=== PATIENT | female | born 1945 | race Caucasian/White ===

== ENCOUNTER 2019-01-21 16:00 | Observation (INO) | payer OTHER ==
[~2019-01-21] VITALS: Ht 162.6 cm; Wt 73.9 kg
[~2019-01-21 16:00] MED LIST: ASPIR 8181 MG PO; HYDROCHLOROTH12.5 M1 PO; LOSARTAN POTAS100 MG PO; NORVASC5 MG PO; PROAIR HFA INH8.5 GM INH; SERTRALINE HCL100 MG PO; TERAZOSIN HCL2 MG PO; TIROSINT75 MCG PO
[2019-01-21] MEDS ORDERED: ASPIRIN 81 MG CHEW TAB PO STA (16:46)
[2019-01-21] MEDS ORDERED: ASPIRIN 81 MG CHEW TAB PO ONE (17:00)
[2019-01-21 17:31] LABS: BASOPHILS # (AUTO) 0.1 (0.0-0.1); BASOPHILS % 1.1 % (0.0-1.0); EOSINOPHILS # (AUTO) 0.2 (0.0-0.4); EOSINOPHILS % 2.4 % (0.0-6.0); HEMATOCRIT 37.3 % (34.2-44.1); HEMOGLOBIN 12.5 g/dL (12.0-16.0); LYMPHOCYTES % 31.6 % (18.0-39.1); MEAN CORPUSCULAR HEMOGLOBIN 30.6 pg (28-32); MEAN CORPUSCULAR HGB CONC 33.5 g/dL (31-35); MEAN CORPUSCULAR VOLUME 91.2 fL (81-99); MONOCYTES # (AUTO) 0.5 (0.2-0.8); MONOCYTES % 7.2 % (4.4-11.3); NEUTROPHILS # (AUTO) 3.6 (2.1-6.9); NEUTROPHILS % 57.5 % (38.7-80.0); PLATELET COUNT 173 x10e3/uL (140-360); RED BLOOD COUNT 4.09 x10e6/uL (3.6-5.1); RED CELL DISTRIBUTION WIDTH 13.5 % (11.7-14.4)
[2019-01-21 17:37] LABS: INR 0.86; PROTHROMBIN TIME 12.2 seconds (11.9-14.5)
[2019-01-21 17:38] LABS: PARTIAL THROMBOPLASTIN TIME 30.3 seconds (23.8-35.5)
[2019-01-21 17:41] LABS: BILIRUBIN,URINE NEGATIVE (NEGATIVE); CLARITY,URINE CLEAR (CLEAR); COLOR,URINE YELLOW (YELLOW); KETONES,URINE NEGATIVE (NEGATIVE); LEUKOCYTE ESTERASE ,URINE TRACE (NEGATIVE); NITRITE,URINE NEGATIVE (NEGATIVE); PROTEIN,URINE DIPSTICK NEGATIVE (NEGATIVE); URINE UROBILINOGEN 0.2 mg/dL (0.2 - 1)
[2019-01-21 17:45] LABS: ALANINE AMINOTRANSFERASE 9 IU/L (0-55); ALBUMIN 3.6 g/dL (3.5-5.0); ALBUMIN/GLOBULIN RATIO 1.1 (0.8-2.0); ALKALINE PHOSPHATASE 40 IU/L (40-150); ANION GAP 9.6 mmol/L (8-16); BLOOD UREA NITROGEN 18 mg/dL (7-26); BUN/CREATININE RATIO 23 (6-25); CALCIUM 9.2 mg/dL (8.4-10.2); CARBON DIOXIDE 26 mmol/L (22-29); CHLORIDE 102 mmol/L (98-107); CREATINE KINASE 52 IU/L (29-168); CREATININE, SERUM 0.78 mg/dL (0.57-1.11); EST GLOMERULAR FILTRATION RATE > 60 ML/MIN (60-); GLUCOSE 102 mg/dL (74-118); POTASSIUM 3.6 mmol/L (3.5-5.1); SODIUM 134 mmol/L (136-145)
[2019-01-21 17:48] LABS: BACTERIA,URINE FEW /HPF; EPITHELIAL CELLS,URINE MODERATE /LPF; WBC,URINE (MAN) 0-5 /HPF (0-5)
--- NOTE | 2019-01-21 18:13 | Diagnostic Imaging Report ---
EXAMINATION: CHEST SINGLE (PORTABLE) INDICATION: CHEST PAIN COMPARISON: None FINDINGS: TUBES and LINES: None. LUNGS: Lungs are well inflated. Lungs are clear. There is no evidence of pneumonia or pulmonary edema. PLEURA: No pleural effusion or pneumothorax. HEART AND MEDIASTINUM: The cardiac silhouette is mildly enlarged. BONES AND SOFT TISSUES: No acute osseous lesion. Multiple surgical clips projected on the thoracic inlet. UPPER ABDOMEN: No free air under the diaphragm. IMPRESSION: Mild cardiomegaly without acute decompensation. Signed by: Dr. Topher Walter M.D. on 01/21/2019 6:09 PM
[2019-01-21] MEDS ORDERED: ACETAMINOPHEN 325 MG TAB PO ONE (18:30)
--- OUTSIDE RECORDS SUMMARY | 2019-01-21 19:10 | XMS REPORT ---
Author Author [facility] Address Unknown Phone Unavailable Care Team Providers Care Cuff Stitcher Name Role Phone Louise PERRIN Unavailable Unavailable Problems This patient has no known problems. Allergies, Adverse Reactions, Alerts This patient has no known allergies or adverse reactions. Medications This patient has no known medications. Results Test Description Test Time Test Comments Text Results Atomic Results Result Comments CHEST SINGLE (PORTABLE) 2019-01-21 18:08:00 [place] [id number] Patient Name: SABA SHI MR #: [id number] : 1945 Age/Sex: 73/F Req #: [id number] Adm Physician: Ordered by: SOCORRO PERRNI MD Report #: [id number] Location: ER Room/Bed: Procedure: [id number] DX/CHEST SINGLE (PORTABLE) Exam Date: 01/21/19 Exam Time: 1745 REPORT STATUS: Signed EXAMINATION: CHEST SINGLE (PORTABLE) INDICATI ON: CHEST PAIN COMPARISON: None FINDINGS: TUBES and LINES: None. LUNGS: Lungs are well inflated. Lungs are clear. There is no evidence of pneumonia or pulmonary edema. PLEURA: No pleural effusion or pneumothorax. HEART AND MEDIASTINUM: The cardiac silhouette is mildly enlarged. BONES AND SOFT TISSUES: No acute osseous lesion. Multiple surgical clips projected on the thoracic inlet. UPPER ABDOMEN: No free air under the diaphragm. IMPRESSION: Mild cardiomegaly without acute decompensation. Signed by: Dr. Topher Walter M.D. on 01/21/2019 6:09 PM Dictated By: NESTOR WALTER MD, MD 08 Transcribed By: PONCHO on 01/21/191808 COPY TO: SOCORRO PERRIN MD
[2019-01-21] MEDS ORDERED: ONDANSETRON HCL INJ 2MG/ML 2ML 2 MG/ML VIAL IV PRN (19:15)
[2019-01-21] MEDS: FAMOTIDINE 20 MG/2 ML VIAL IV SCH (19:45)
[2019-01-21 20:00] VITALS: BP 171/73
[2019-01-21 21:33] VITALS: BP 171/73
[2019-01-21 21:34] VITALS: BP 171/73
[2019-01-21] MEDS ORDERED: ALBUTEROL SULFATE HFA 8GM INHALATION AEROSOL INH PRN (21:45)
[2019-01-21] MEDS ORDERED: HYDRALAZINE HCL 20 MG/ML VIAL IV PRN (23:15)
[2019-01-21] MEDS ORDERED: DIOVAN160 MG PO (23:43)
[2019-01-21] MEDS ORDERED: HYDRALAZINE HCL25 MG PO (23:43)
[2019-01-21] MEDS ORDERED: TIZANIDINE HCL4 MG PO (23:43)
[2019-01-21] MEDS ORDERED: TRAZODONE HCL50 MG PO (23:43)
[2019-01-21] MEDS ORDERED: SYMBICORT 16010.2 GM (23:43)
[2019-01-22] VITALS (7 sets, daily range): BP systolic 140–174; BP diastolic 63–78
[2019-01-22] MEDS: LEVOTHYROXINE SODIUM 75 MCG TAB PO SCH (05:11)
[2019-01-22 05:41] LABS: BASOPHILS # (AUTO) 0.1 (0.0-0.1); EOSINOPHILS # (AUTO) 0.2 (0.0-0.4); EOSINOPHILS % 3.1 % (0.0-6.0); HEMATOCRIT 33.2 % (34.2-44.1); HEMOGLOBIN 11.3 g/dL (12.0-16.0); LYMPHOCYTES # (AUTO) 2.2 (1.0-3.2); LYMPHOCYTES % 35.9 % (18.0-39.1); MEAN CORPUSCULAR HEMOGLOBIN 30.5 pg (28-32); MEAN CORPUSCULAR VOLUME 89.5 fL (81-99); MONOCYTES # (AUTO) 0.5 (0.2-0.8); MONOCYTES % 7.6 % (4.4-11.3); NEUTROPHILS # (AUTO) 3.2 (2.1-6.9); NEUTROPHILS % 52.1 % (38.7-80.0); PLATELET COUNT 154 x10e3/uL (140-360); RED BLOOD COUNT 3.71 x10e6/uL (3.6-5.1); RED CELL DISTRIBUTION WIDTH 13.2 % (11.7-14.4)
[2019-01-22 05:51] LABS: ANION GAP 8.1 mmol/L (8-16); BLOOD UREA NITROGEN 20 mg/dL (7-26); BUN/CREATININE RATIO 25 (6-25); CALCIUM 8.8 mg/dL (8.4-10.2); CARBON DIOXIDE 25 mmol/L (22-29); CHLORIDE 105 mmol/L (98-107); CHOL/HDL RATIO 3.8 (3.0-3.6); CHOLESTEROL 203 MD/DL (0-199); EST GLOMERULAR FILTRATION RATE > 60 ML/MIN (60-); GLUCOSE 96 mg/dL (74-118); HDL CHOLESTEROL 53 MG/DL (40-60); LDL CHOLESTEROL 128 MG/DL (60-130); POTASSIUM 4.1 mmol/L (3.5-5.1); SODIUM 134 mmol/L (136-145); TRIGLYCERIDES 109 MG/DL (0-149)
[2019-01-22 06:07] LABS: CREATINE KINASE MB 1.1 ng/mL (0-5.0)
--- NOTE | 2019-01-22 07:10 | NUR ---
Walking rounds done. Report received.Patient up to bathroom without any complaints voiced at this time. Patient instructed to call for assistance as needed and verbalized understanding.
[2019-01-22] MEDS: HYDROCHLOROTHIAZIDE 25 MG TAB PO SCH ×2 (09:00→16:08)
[2019-01-22] MEDS ORDERED: LOSARTAN POTASSIUM 100 MG TAB PO SCH (09:00)
[2019-01-22] MEDS ORDERED: NON-FORMULARY MEDICATION (Hydrochlorothiazide 12.5 MG) PO SCH (09:00)
[2019-01-22] MEDS ORDERED: HYDROCHLOROTHIAZIDE 10 MG PO SCH (09:00)
[2019-01-22] MEDS ORDERED: TERAZOSIN HCL 1 MG CAP PO SCH (09:00)
[2019-01-22] MEDS ORDERED: AMLODIPINE BESYLATE 5 MG TAB PO SCH (09:00)
[2019-01-22] MEDS ORDERED: NON-FORMULARY MEDICATION (Terazosin Hcl 2 MG) PO SCH (09:00)
[2019-01-22] MEDS ORDERED: NON-FORMULARY MEDICATION (Levothyroxine Sodium (Tirosint) 75 MCG) PO SCH (09:00)
[2019-01-22] MEDS ORDERED: ASPIRIN 81 MG ENTERIC COATED PO SCH (09:00)
[2019-01-22] MEDS: FAMOTIDINE 20 MG/2 ML VIAL IV SCH ×2 (09:00→21:08)
[2019-01-22] MEDS: ASPIRIN 81 MG CHEW TAB PO SCH (09:21)
[2019-01-22] MEDS: SERTRALINE HCL 100 MG TAB PO SCH (09:21)
[2019-01-22] MEDS ORDERED: ACETAMINOPHEN 325 MG TAB PO PRN (09:30)
--- NOTE | 2019-01-22 09:38 | NUR ---
SOCIAL WORK INITIAL ASSESSMENT English Language Learner Tutor to bedside to discuss plan of care with patient/family. CM/SW role and care transitions discussed. Anticipated discharge plan discussed along with duration of care. CM/SW discussed patients right to make decisions in care. CM/SW work hours given. Patient lives: WITH Admit/Transfer: VIA ED POA/Emergency contact: GARY [phone] OR YANN [phone] Current/Previous Home Health: NA PCP/Follow-up Care: EVAN Current/Previous DME: NONE Other Services: NONE Employment Status: NA Areas of Concerns: NA Referral Needs: NA Education Needs: NA IMM/KNOWLES given and signed (if applicable): UPON ADMISSION Goal for discharge: RETURN HOME CM/SW left business card at the bedside with contact information. Name and number was also written on the patients whiteboard. Patient verbalized understanding of discussion. CM will follow-up with ongoing discharge and transition of care needs.
[2019-01-22] MEDS: VALSARTAN 160 MG TAB PO SCH (10:02)
--- NOTE | 2019-01-22 12:55 | NUR ---
Patient returned from stress test
[2019-01-22] MEDS: NIFEDIPINE CR 30 MG TAB PO SCH (13:00)
[2019-01-22] MEDS ORDERED: CLOPIDOGREL BISULFATE 75 MG TAB PO NR (13:15)
[2019-01-22] MEDS: HYDRALAZINE HCL 25 MG TAB PO SCH ×2 (15:55→21:10)
--- NOTE | 2019-01-22 16:31 | Operative Report ---
DATE OF PROCEDURE: SURGEON: Sarmad Maravilla MD TITLE OF TEST: Cardiac stress test. TECHNICAL DETAILS: The protocol is Nacho with target heart rate at 124 per minute. RESULTS: 1. The patient exercised for a total of 6 minutes and 6 seconds. 2. Heart rate increased from 54 per minute to 130 per minute. 3. Blood pressure increased from to 130/84. Significant ST-T segment changes were noted. 4. No chest pain, but shortness of breath. 5. Of note, the patient came with chest tightness and pain radiating to her neck, which she did not have during that stress test. IMPRESSION: Strongly positive stress test by EKG criteria. However, the patient did not have reproducible chest pain, it is only shortness of breath. We discussed the finding and recommendation options of further tests are discussed. Nuclear stress test will be probably the best approach; however, the patient would like to think about her option and decide what to do. MD RAY Pond/MODL /[id number]
--- NOTE | 2019-01-22 19:16 | Consultation ---
DATE OF CONSULTATION: Cardiac Consultation REASON FOR CONSULTATION: Chest pain. HISTORY OF PRESENT ILLNESS: This is a 73-year-old lady who has long standing history of hypertension, reactive airway disease, and asthma. She is in her usual status of health. For one month or so, she is having more "respiratory tract symptoms and difficulty breathing." Yesterday, she was stressed out. She started having chest pressure and tightness, radiating to her neck, very typical for angina. She came to the emergency room, two sets of cardiac enzymes are normal. The patient does have shortness of breath on exertion and repeated shortness of breath, wheezes, cough, and congestion. She is followed in [facility]. She saw a health screener who did only EKG on her. REVIEW OF SYSTEMS: GENERAL: No fever. No chills. HEENT: Remarkable for repeated congestion. PULMONARY: Asthma like symptoms. CARDIAC: As per above. In addition, shortness of breath on exertion. GI: No hematemesis. No melena. No GERD symptoms. MUSCULOSKELETAL: No aches. No pains. NEUROLOGIC: No weakness. SOCIAL HISTORY: She is . She is nonsmoker and non-alcohol drinker. HOME MEDICATIONS: Include aspirin, hydralazine 50 mg t.i.d., hydrochlorothiazide 12.5 mg daily, levothyroxine 75 mcg a day, and valsartan 320 mg. ALLERGIES: CODEINE, IODINE, STATIN, SULFA, AND BETA-CHANDRIKA. PAST MEDICAL HISTORY: 1. Appendectomy. 2. Partial hysterectomy. 3. Cataract surgery. 4. Tonsillectomy. 5. Left knee surgery. 6. Asthma. 7. Reactive airway disease. 8. Hypertension. 9. Kidney stone. 10. Diverticulosis. FAMILY HISTORY: Mother of congestive heart failure, but she was already age 90. Father, unknown medical health problems. One sister, who is doing well. No history of premature coronary artery disease. PHYSICAL EXAMINATION: VITAL SIGNS: Height of 5 feet 4 inches, weight of 163 pounds. Blood pressure 144/70, heart rate of 50, and respiratory rate of 18, and temperature 98 Farenheit. HEENT: Pupils are reactive. NECK: No elevation of jugular venous pulsation. No bruit. CHEST: Clear to auscultation and percussion. HEART: PMI, fifth left intercostal space. Normal first and second heart sounds. ABDOMEN: Soft, with good bowel sounds. EXTREMITIES: No cyanosis, no clubbing, no edema. No signs of deep venous thrombosis. NEUROLOGIC: Awake, alert, and oriented. No motor or sensory deficits. LABORATORY DATA: BNP of 103. Cardiac enzymes are normal. Triglycerides are 109, cholesterol 203, HDL 53, LDL 128. Sodium of 134, potassium of 4.1, BUN of 20, creatinine 0.8. White blood cell count of 6.2, hemoglobin 11.3, hematocrit 33%, and platelet count of 154,000. Chest x-ray by reports showed no major abnormality. IMPRESSION AND PLAN: 1. Chest pain, seem to be typical by description. 2. Hypertension. 3. Hypercholesteremia. 4. Reactive airway disease. 5. Asthma. Cardiac reyes, recommendation is to do stress test since she has had two sets, cardiac enzymes are negative. Pending on her stress test, further tests to be done. Case discussed with the patient. We will make arrangements to have stress test. MD RAY Pond/CINDY /[id number]
--- NOTE | 2019-01-22 19:20 | NUR ---
Received patient from day nurse, patient is stable,
[2019-01-23] VITALS: BP 132/79
[2019-01-23 04:01] VITALS: BP 151/79
[2019-01-23] MEDS ORDERED: TRAMADOL HCL 50 MG TAB PO PRN (04:15)
[2019-01-23] MEDS: LEVOTHYROXINE SODIUM 75 MCG TAB PO SCH (06:42)
--- NOTE | 2019-01-23 07:18 | NUR ---
patient endorsed to day nurse for continuity of care. patient complained of abdominal pain and dr. Bobo ordered for ct of abd and pelvis to rule out diverticulitis.
[2019-01-23 08:00] VITALS: BP 155/70
[2019-01-23] MEDS: FAMOTIDINE 20 MG/2 ML VIAL IV SCH (08:31)
[2019-01-23] MEDS ORDERED: VALSARTAN 160 MG TAB PO SCH (09:00)
[2019-01-23] MEDS: HYDROCHLOROTHIAZIDE 25 MG TAB PO SCH (09:00)
[2019-01-23] MEDS ORDERED: HYDRALAZINE HCL 25 MG TAB PO SCH ×2 (09:00)
[2019-01-23] MEDS ORDERED: CLOPIDOGREL BISULFATE 75 MG TAB PO SCH (09:00)
[2019-01-23] MEDS: SERTRALINE HCL 100 MG TAB PO SCH (09:31)
[2019-01-23] MEDS: ASPIRIN 81 MG CHEW TAB PO SCH (09:31)
[2019-01-23] MEDS: VALSARTAN 160 MG TAB PO SCH (09:31)
[2019-01-23 12:14] VITALS: BP 143/65
[2019-01-23] MEDS: NIFEDIPINE CR 30 MG TAB PO SCH (12:17)
--- NOTE | 2019-01-23 13:07 | Diagnostic Imaging Report ---
EXAMINATION: CT of the abdomen and pelvis without contrast. TECHNIQUE: Spiral CT images of the abdomen and pelvis were performed from the lung bases to the lesser trochanters. No intravenous contrast was given due to history of iodine allergy. Oral Redicat was given.. Coronal and sagittal reformatted images were obtained. COMPARISON: None. CLINICAL HISTORY:Rule out diverticulitis DISCUSSION: ABSENCE OF INTRAVENOUS CONTRAST DECREASES SENSITIVITY FOR DETECTION OF FOCAL LESIONS AND VASCULAR PATHOLOGY. ABDOMEN/PELVIS: LOWER THORAX: Unremarkable. HEPATOBILIARY: No focal hepatic lesions. No intra or extrahepatic biliary ductal dilation. GALLBLADDER: No radio-opaque stones or sludge. No wall thickening. SPLEEN: No splenomegaly. PANCREAS: No focal masses or ductal dilatation. Pancreatic atrophy. ADRENALS: No adrenal nodules. KIDNEYS/URETERS: 3 mm nonobstructing calculus in the right interpolar region (series 2, image 25). No other renal or ureteral calculi. No hydronephrosis or obstruction. No significant perinephric stranding or contour abnormalities. PELVIC ORGANS/BLADDER: Bladder is unremarkable. Uterus is absent. No adnexal masses. Multiple pelvic phleboliths. PERITONEUM/RETROPERITONEUM: No free air or fluid. LYMPH NODES: No intra-abdominal,retroperitoneal, pelvic or inguinal lymphadenopathy. VESSELS: Atherosclerotic calcification of the abdominal aorta and iliac vessels. GI TRACT: No bowel dilation or evidence of obstruction. Marked diverticulosis of the distal descending and sigmoid colon, without surrounding inflammatory changes to suggest diverticulitis. No foci of extraluminal air or well defined adjacent fluid collections. BONES AND SOFT TISSUES: No aggressive lytic lesions. Degenerative disc changes in the lower thoracic and lumbosacral spine, worse at L5-S1. Associated levoscoliosis. IMPRESSION: 1. Marked diverticulosis of the distal descending and sigmoid colon, without CT evidence of diverticulitis. No bowel dilation or evidence of obstruction. 2. 3 mm nonobstructing calculus in the right interpolar region. Signed by: Dr. Amaury Valentine M.D. on 01/23/2019 1:04 PM
[2019-01-23] MEDS ORDERED: NIFEDIPINE ER30 M1 PO (14:28)
[2019-01-23] MEDS ORDERED: ULTRAM50 MG PO (14:29)
[2019-01-23] MEDS ORDERED: PLAVIX75 MG PO (14:29)
--- NOTE | 2019-01-23 15:45 | NUR ---
IV dc'd earlier, cath intact and small dressing applied. Patient given written instructions and prescriptions given. She verbalized understanding. Spouse took patient home in personal vehicle.
--- NOTE | 2019-01-24 02:12 | Discharge Summary ---
PRIMARY CARE DOCTOR: Dr. Alex Wood. FINAL DIAGNOSIS: Chest pain. SECONDARY DIAGNOSES: 1. Non-obstructed right-sided kidney stones. 2. Uncontrolled hypertension, better. 3. Hypothyroidism with normal TSH. 4. Diverticulosis. CLOTH DYE RANGE OPERATOR: Dr. Maravilla, Cardiology. PROCEDURES/STUDIES PERFORMED: 1. Stress echocardiogram. 2. CT of abdomen and pelvis. HISTORY: Per [facility]. HOSPITAL COURSE: Her repeat troponins were negative. Therefore, no acute myocardial infarction. The patient underwent a stress echo, which she was reported to do for more than 6 minutes without any chest pain, which has a great prognostic value. However, she did have ST depression and was asymptomatic. Again, she did not have any chest pain. I spoke to Cardiology. They feel that it is likely due to her uncontrolled hypertension. Nifedipine extended release was started now. Her blood pressure is much better. The patient is medically stable for discharge. The patient will follow up with her [facility] well service floorperson. However, per Cardiology in the meantime, the patient will continue Plavix for now. While in the hospital, the patient also developed right-sided chest pain. The patient stated that this is her diverticulitis pain. However, on CAT scan, there is no diverticulitis. She does have 3 mm non-obstructed kidney stones. Right now, the patient states her pain is tolerable. The patient understands that she needs to keep herself well hydrated. I have written a prescription for tramadol just in case. If she cannot pass the stone on her own, the patient will need to follow up with [facility] urologist. I have updated her primary care doctor about this hospitalization. The patient will follow up with him in a week. The patient was seen and examined today. CONDITION ON DISCHARGE: Stable. DISCHARGE MEDICATIONS: Please see medication reconciliation form. Tanishaching MD JUDD Lee/CINDY /[id number]
== END 2019-01-23 15:50 | disposition home or self-care (01) ==
LOC: ER 16:00 → ERHOLD 19:09 → IMCU 21:14
PROVIDERS: ADMIT Internal Medicine; ATTEND Internal Medicine
DX: R07.9 Chest pain, unspecified (principal); I10 Essential (primary) hypertension; F41.9 Anxiety disorder, unspecified; R42 Dizziness and giddiness; E03.9 Hypothyroidism, unspecified; E87.1 Hypo-osmolality and hyponatremia; J45.909 Unspecified asthma, uncomplicated; E78.00 Pure hypercholesterolemia, unspecified; K57.92 Diverticulitis of intestine, part unspecified, without perforation or abscess without bleeding; Z82.49 Family history of ischemic heart disease and other diseases of the circulatory system; Z88.5 Allergy status to narcotic agent; Z88.2 Allergy status to sulfonamides; Z88.8 Allergy status to other drugs, medicaments and biological substances; Z91.041 Radiographic dye allergy status; Z87.442 Personal history of urinary calculi; R00.1 Bradycardia, unspecified; Z79.82 Long term (current) use of aspirin; N20.0 Calculus of kidney
CPT/HCPCS: 36415 ×2; 71045; 74176; 80048; 80053; 80061; 81001; 82550 ×2; 82553 ×2; 83880; 84443; 84484 ×2; 85025 ×2; 85610; 85730; 93005 ×2; 93017; 93306; 99284; G0378 ×3

== ENCOUNTER 2020-06-16 18:18 | Inpatient (IN) | payer MEDICARE, OTHER ==
[~2020-06-16] VITALS: Ht 162.6 cm; Wt 73.5 kg
[~2020-06-16 18:18] MED LIST changes: +DIOVAN160 MG PO; +HYDRALAZINE HCL25 MG PO; +NIFEDIPINE ER30 M1 PO; +PLAVIX75 MG PO; +SYMBICORT 16010.2 GM; +TIZANIDINE HCL4 MG PO; +TRAZODONE HCL50 MG PO; +ULTRAM50 MG PO
[2020-06-16] MEDS ORDERED: CEFPODOXIME PR200 MG PO (18:43)
[2020-06-16] MEDS ORDERED: EUTHYROX75 MCG PO (18:43)
[2020-06-16] MEDS ORDERED: NIFEDIPINE ER30 M1 PO ×2 (18:43→18:44)
[2020-06-16] MEDS ORDERED: RESTORIL7.5 MG PO (18:43)
[2020-06-16] MEDS ORDERED: HYDRALAZINE HCL25 MG PO (18:43)
[2020-06-16] MEDS ORDERED: ACETAMINOPHEN 325 MG TAB PO ONE (18:45)
--- NOTE | 2020-06-16 18:51 | Emergency Department Note ---
History of Present Illnes History of Present Illness Chief Complaint: General Medicine Complaints History of Present Illness This is a 74 year old female IN FROM HOME WITH COMPLAINTS OF DIZZINESS X 3 DAYS SINCE HAVING HER BLOOD PRESSURE MEDICATIONS CHANGED. PATIENT ALSO WITH COMPLAINTS OF LEFT SHOULDER, ARM, AND JAW PAIN AND CHEST PRESSURE SINCE YESTERDAY. PT'S HYDRALAZINE CHANGED HYDRALAZINE FROM 25 MG TID TO 100 MG TID VALSARTAN CHANGED FROM 160MG PO DAILY TO 320 MG PO DAILY, AND HCTZ WAS STOPPED, AND NIFEDIPINE STARTED ON 30 MG DAILY. Historian: Patient Arrival Mode: Car Onset (how long ago): day(s) (3) Location: CHEST, NECK, LEFT ARM AND HEAD Quality: PAIN, DIZZINESS Radiation: Reports non-radiation Severity: moderate Onset quality: gradual Duration (how long): day(s) (3) Timing of current episode: constant Progression: unchanged Chronicity: new Context: Reports new medications (MEDICATION CHANGES ABOVE); Denies recent illness, Denies recent surgery Relieving factors: none Exacerbating factors: none Associated symptoms: Reports chest pain Treatments prior to arrival: none Past Medical/Family History Physician Review I have reviewed the patient's past medical and family history. Any updates have been documented here. Past Medical History Recent Fever: No Clinical Suspicion of Infectio: No New/Unexplained Change in Ment: No Past Medical History: Hypertension, Hypothyroidism Other Medical History: BRONCHITIS, GLAUCOMA, HYPOTHYROID BRADYCARDIA DIVERTICULITIS Past Surgical History: Appendectomy, Hysterectomy, T&A, Knee Replacement, Cataract Removal Other Surgery: THYROIDECTOMY KIDNET STONE REMOVAL LEFT KNEE Social History Smoking Cessation: Never Smoker Alcohol Use: None Any Illegal Drug Use: No Physically hurt or threatened: No Family History Family history of heart diseas: No Other family history HTN Other Last Tetanus: UNKNOWN Review of Systems Review of Systems Constitutional: Reports no symptoms EENTM: Reports no symptoms Cardiovascular: Reports as per HPI Respiratory: Reports no symptoms Gastrointestinal: Reports no symptoms Genitourinary: Reports no symptoms Musculoskeletal: Reports no symptoms Integumentary: Reports no symptoms Neurological: Reports as per HPI Psychological: Reports no symptoms Endocrine: Reports no symptoms Hematological/Lymphatic: Reports no symptoms Physical Exam Related Data Allergies: Coded Allergies: Sulfa (Sulfonamide Antibiotics) (Verified Allergy, Intermediate, HIVES, 06/16/20) benzonatate (Verified Allergy, Intermediate, PALPATIONS, 06/16/20) codeine (Verified Allergy, Intermediate, RESTLESS, 06/16/20) iodine (Verified Allergy, Intermediate, HIVES, 06/16/20) nitrofurantoin (Verified Allergy, Intermediate, HIVES, 06/16/20) Grbccyc-Box-Sso Reductase Inhibitor (Verified Allergy, Mild, MUSCLE CRAMPS, 06/16/20) atenolol (Verified Allergy, Mild, RASH, 01/21/19) erythromycin base (Verified Allergy, Unknown, 01/21/19) Triage Vital Signs Vital Signs Date Time Temp Pulse Resp B/P (MAP) Pulse Ox O2 Delivery O2 Flow Rate FiO2 06/16/20 18:23 99.3 46 20 124/71 98 Room Air Vital signs reviewed: Yes Physical Exam CONSTITUTIONAL Constitutional: Present well-developed, Present well-nourished HENT HENT: Present normocephalic, Present atraumatic, Present oropharynx clear/moist, Present nose normal HENT L/R: Present left ext ear normal, Present right ext ear normal EYES Eyes: Reports PERRL, Reports conjunctivae normal NECK Neck: Present ROM normal PULMONARY Pulmonary: Present effort normal, Present breath sounds normal CARDIOVASCULAR Cardiovascular: Present regular rhythm, Present heart sounds normal, Present capillary refill normal, Present bradycardia (46) GASTROINTESTINAL Abdominal: Present soft, Present nontender, Present bowel sounds normal GENITOURINARY Genitourinary: Present exam deferred SKIN Skin: Present warm, Present dry MUSCULOSKELETAL Musculoskeletal: Present ROM normal NEUROLOGICAL Neurological: Present alert, Present oriented x 3, Present no gross motor or sensory deficits PSYCHOLOGICAL Psychological: Present mood/affect normal, Present judgement normal Results Laboratory Laboratory Laboratory Tests Test 06/16/20 18:37 White Blood Count 5.73 x10e3/uL (4.8-10.8) Red Blood Count 4.10 x10e6/uL (3.6-5.1) Hemoglobin 12.5 g/dL (12.0-16.0) Hematocrit 37.0 % (34.2-44.1) Mean Corpuscular Volume 90.2 fL (81-99) Mean Corpuscular Hemoglobin 30.5 pg (28-32) Mean Corpuscular Hemoglobin Concent 33.8 g/dL (31-35) Red Cell Distribution Width 12.8 % (11.7-14.4) Platelet Count 201 x10e3/uL (140-360) Neutrophils (%) (Auto) 55.3 % (38.7-80.0) Lymphocytes (%) (Auto) 34.9 % (18.0-39.1) Monocytes (%) (Auto) 7.7 % (4.4-11.3) Eosinophils (%) (Auto) 1.0 % (0.0-6.0) Basophils (%) (Auto) 0.9 % (0.0-1.0) Neutrophils # (Auto) 3.2 (2.1-6.9) Lymphocytes # (Auto) 2.0 (1.0-3.2) Monocytes # (Auto) 0.4 (0.2-0.8) Eosinophils # (Auto) 0.1 (0.0-0.4) Basophils # (Auto) 0.1 (0.0-0.1) Absolute Immature Granulocyte (auto 0.01 x10e3/uL (0-0.1) Sodium Level 132 mmol/L (136-145) Potassium Level 4.3 mmol/L (3.5-5.1) Chloride Level 101 mmol/L (98-107) Carbon Dioxide Level 20 mmol/L (22-29) Anion Gap 15.3 mmol/L (8-16) Blood Urea Nitrogen 16 mg/dL (7-26) Creatinine 1.02 mg/dL (0.57-1.11) Estimat Glomerular Filtration Rate 53 ML/MIN (60-) BUN/Creatinine Ratio 16 (6-25) Glucose Level 93 mg/dL (74-118) Calcium Level 8.9 mg/dL (8.4-10.2) Total Bilirubin 0.4 mg/dL (0.2-1.2) Aspartate Amino Transf (AST/SGOT) 10 IU/L (5-34) Alanine Aminotransferase (ALT/SGPT) 8 IU/L (0-55) Alkaline Phosphatase 34 IU/L (40-150) Creatine Kinase 37 IU/L (29-168) Creatine Kinase MB 0.60 ng/mL (0-5.0) Troponin I 0.021 ng/mL (0-0.300) Total Protein 6.3 g/dL (6.5-8.1) Albumin 3.8 g/dL (3.5-5.0) Globulin 2.5 g/dL (2.3-3.5) Albumin/Globulin Ratio 1.5 (0.8-2.0) Lab results reviewed: Yes Imaging Imaging results reviewed: Yes Impressions EXAMINATION: CHEST SINGLE (PORTABLE) INDICATION: dizziness, chest pain COMPARISON: None FINDINGS: TUBES and LINES: None. LUNGS: Normal lung volumes. Lungs are clear. No consolidations. PLEURA: No pleural effusion or pneumothorax. HEART AND MEDIASTINUM: The cardiomediastinal silhouette is unremarkable. BONES AND SOFT TISSUES: No acute osseous lesion. Soft tissues are unremarkable. Surgical clips project over the thoracic inlet. IMPRESSION: No acute thoracic radiographic abnormality. Signed by: Haroldo Rubalcava MD on 06/16/2020 7:47 PM Dictated By: HAROLDO RUBALCAVA MD 46 Transcribed By: PONCHO on 06/16/201946 COPY TO: FARZAD FRANKLIN MD~ CT BRAIN WO HISTORY: Headache, dizziness COMPARISON: None. Technique: Noncontrast axial scans were obtained from skull base to the vertex. Coronal and sagittal reconstructions obtained from the axial data. One or more of the following dose reduction techniques were used: Automated exposure control, adjustment of the mA and/or kV according to patient size, and/or utilization of iterative reconstruction technique. DISCUSSION: Scalp/Skull: Unremarkable. Brain sulci: Mildly prominent. Ventricles: Compensatory dilatation. Extra-axial spaces: No masses or fluid collections. Carotid siphon calcifications are present. Parenchyma: Mild bilateral deep white matter hypodensity is likely chronic microvascular ischemic change. Otherwise, no masses, hemorrhage, or large vascular territory acute infarct. Dural sinuses: No abnormal densities. Sellar/Suprasellar region: Intact. Skull base: Intact. Incidental findings: Bilateral ocular lens replacement. IMPRESSION: 1. No acute intracranial abnormalities. 2. Mild supratentorial chronic microvascular ischemic change. Mild generalized cerebral volume loss. Signed by: Dr. Benny Lang M.D. on 06/16/2020 7:53 PM Dictated By: BENNY LANG MD 52 Transcribed By: PONCHO on 06/16/201952 COPY TO: FARZAD FRANKLIN MD~ Procedures 12 Lead ECG Interpretation ECG Interpretation : ECG: ECG 1 Babbitt Spinner: Interpreted by ED physician Date: Jun 16, 2020 Time: 18:26 Rhythm: sinus bradycardia Rate: bradycardia BPM: 46 QRS axis: normal ST segments normal: Yes T waves flattening: all Q waves: V1, V2, V3 Clinical Impression: abnormal ECG Assessment & Plan Medical Decision Making MDM Patient with complaint of dizziness headache that started 3 days ago after having multiple blood pressure medicines changed on Thursday. Also complains of left-sided chest pain radiating to her left arm left neck and head as well since yesterday. All of the symptoms are constant in nature at this time. Patient is also found to be bradycardic with a heart rate of 46. Upon review of old records patient's heart rate normally runs anywhere from 48-60. Of interest was the blood pressure medications was changed on patient she was started on nifedipine on Thursday as well. CBC, CMP, EKG, cardiac enzymes, CT brain, chest x-ray, UA ordered to eval for electrolyte abnormality, myocardial infarction, intracranial abnormality, CVA,, pneumonia, pulmonary edema, sick sinus syndrome, heart block I SPOKE WITH DR RODRIGUEZ, PLACE IN OBS FOR CARDIAC RULE OUT, HOLD BP MEDICATIONS AT THIS TIME AND PUT PATIENT ON SCHEDULED IV HYDRALAZINE FOR NOW Assessment & Plan Final Impression: (1) Chest pain (2) Bradycardia (3) Medication side effect (4) Dizziness Depart Disposition: ADMITTED Last Vital Signs Date Time Temp Pulse Resp B/P (MAP) Pulse Ox O2 Delivery O2 Flow Rate FiO2 06/16/20 18:23 99.3 46 20 124/71 98 Room Air Home Meds Reported Medications Nifedipine (NIFEDIPINE ER) 30 Mg Tab.er.24, 1 TAB PO DAILY 06/16/20 Levothyroxine Sodium (Euthyrox) 75 Mcg Tablet, 1 TAB PO MONTHLY 06/16/20 Cefpodoxime Proxetil (CEFPODOXIME PROXETIL) 200 Mg Tablet, 1 TAB PO BID 06/16/20 Hydralazine Hcl (HYDRALAZINE HCL) 25 Mg Tab, 100 MG PO TID, TAB 06/16/20 Temazepam (RESTORIL) 7.5 Mg Capsule, 7.5 MG PO HS, #30 TAB 06/16/20 Clopidogrel Bisulfate* (PLAVIX) 75 Mg Tablet, 75 MG PO DAILY, #30 TAB 01/23/19 Tramadol Hcl (ULTRAM) 50 Mg Tablet, 50 MG PO Q6H PRN for MODERATE PAIN (4-6), TAB 01/23/19 Valsartan (DIOVAN) 160 Mg Tab, 320 MG PO DAILY, #60 TAB 01/21/19 Trazodone Hcl (TRAZODONE HCL) 50 Mg Tablet, 50 MG PO HS PRN for SLEEP, #30 TAB 01/21/19 Tizanidine Hcl (TIZANIDINE HCL) 4 Mg Tablet, 4 MG PO HS for MUSCLE SPASMS, TAB 01/21/19 Budesonide/Formoterol Fumarate (SYMBICORT 160-4.5 MCG INHALER) 10.2 Gm Hfa.aer.ad, BID 01/21/19 Sertraline Hcl (SERTRALINE HCL) 100 Mg Tablet, 100 MG PO DAILY 10/11/13 Albuterol Sulf* (PROAIR HFA INHALER*) 8.5 Gm Inh, INH PRN 10/11/13 Aspirin (ASPIR 81) 81 Mg Tablet.dr, 81 MG PO DAILY 10/11/13 Levothyroxine Sodium (TIROSINT) 75 Mcg Capsule, 75 MCG PO DAILY 10/11/13 Discontinued Reported Medications Nifedipine (NIFEDIPINE ER) 30 Mg Tab.er.24, 60 MG PO DAILY 06/16/20 Nifedipine (NIFEDIPINE ER) 30 Mg Tab.er.24, 30 MG PO BID 01/23/19 Hydralazine Hcl (HYDRALAZINE HCL) 25 Mg Tab, 50 MG PO TID, TAB 01/21/19 Hydrochlorothiazide (HYDROCHLOROTHIAZIDE) 12.5 Mg Capsule, 10 MG PO BID 10/11/13 Medications in the ED Acetaminophen 650 mg ONCE ONCE PO ; Start 06/16/20 at 18:45; Stop 06/16/20 at 18:46; Status UNV FARZAD FRANKLIN MD Jun 16, 2020 18:51
[2020-06-16 18:56] LABS: BASOPHILS # (AUTO) 0.1 (0.0-0.1); BASOPHILS % 0.9 % (0.0-1.0); EOSINOPHILS # (AUTO) 0.1 (0.0-0.4); HEMOGLOBIN 12.5 g/dL (12.0-16.0); LYMPHOCYTES % 34.9 % (18.0-39.1); MEAN CORPUSCULAR HEMOGLOBIN 30.5 pg (28-32); MEAN CORPUSCULAR HGB CONC 33.8 g/dL (31-35); MEAN CORPUSCULAR VOLUME 90.2 fL (81-99); MONOCYTES # (AUTO) 0.4 (0.2-0.8); MONOCYTES % 7.7 % (4.4-11.3); NEUTROPHILS # (AUTO) 3.2 (2.1-6.9); NEUTROPHILS % 55.3 % (38.7-80.0); PLATELET COUNT 201 x10e3/uL (140-360); RED CELL DISTRIBUTION WIDTH 12.8 % (11.7-14.4)
[2020-06-16 19:16] LABS: ALBUMIN 3.8 g/dL (3.5-5.0); ALBUMIN/GLOBULIN RATIO 1.5 (0.8-2.0); ANION GAP 15.3 mmol/L (8-16); CALCIUM 8.9 mg/dL (8.4-10.2); CREATININE, SERUM 1.02 mg/dL (0.57-1.11); POTASSIUM 4.3 mmol/L (3.5-5.1)
[2020-06-16 19:22] LABS: CREATINE KINASE MB 0.6 ng/mL (0-5.0)
--- NOTE | 2020-06-16 19:38 | NUR ---
PT BROUGHT BACK TO ER RM [address] AT THIS TIME BY THIS RN. DURING CT BRAIN, PT'S HR DROPPED TO 32. PT STATES HER HR RUNS LOW AND "SOMETIMES DROPS TO THE 30'S". ER MD NOTIFIED AND AWARE OF HR. NO NEW ORDERS AT THIS TIME.
--- NOTE | 2020-06-16 19:50 | Diagnostic Imaging Report ---
EXAMINATION: CHEST SINGLE (PORTABLE) INDICATION: dizziness, chest pain COMPARISON: None FINDINGS: TUBES and LINES: None. LUNGS: Normal lung volumes. Lungs are clear. No consolidations. PLEURA: No pleural effusion or pneumothorax. HEART AND MEDIASTINUM: The cardiomediastinal silhouette is unremarkable. BONES AND SOFT TISSUES: No acute osseous lesion. Soft tissues are unremarkable. Surgical clips project over the thoracic inlet. IMPRESSION: No acute thoracic radiographic abnormality. Signed by: Vickey Solitario MD on 06/16/2020 7:47 PM
--- NOTE | 2020-06-16 19:56 | Diagnostic Imaging Report ---
CT BRAIN WO HISTORY: Headache, dizziness COMPARISON: None. Technique: Noncontrast axial scans were obtained from skull base to the vertex. Coronal and sagittal reconstructions obtained from the axial data. One or more of the following dose reduction techniques were used: Automated exposure control, adjustment of the mA and/or kV according to patient size, and/or utilization of iterative reconstruction technique. DISCUSSION: Scalp/Skull: Unremarkable. Brain sulci: Mildly prominent. Ventricles: Compensatory dilatation. Extra-axial spaces: No masses or fluid collections. Carotid siphon calcifications are present. Parenchyma: Mild bilateral deep white matter hypodensity is likely chronic microvascular ischemic change. Otherwise, no masses, hemorrhage, or large vascular territory acute infarct. Dural sinuses: No abnormal densities. Sellar/Suprasellar region: Intact. Skull base: Intact. Incidental findings: Bilateral ocular lens replacement. IMPRESSION: 1. No acute intracranial abnormalities. 2. Mild supratentorial chronic microvascular ischemic change. Mild generalized cerebral volume loss. Signed by: Dr. Benny Lang M.D. on 06/16/2020 7:53 PM
[2020-06-16] MEDS ORDERED: ONDANSETRON HCL INJ 2MG/ML 2ML 2 MG/ML VIAL IV PRN (20:45)
--- NOTE | 2020-06-16 21:15 | NUR ---
Received pt. from ER via wheelchair accompanied by hospital employee. Alert and oriented x3. Respirations are even and unlabored. IV saline lock to her R arm.
[2020-06-16 22:00] VITALS: BP 164/66
[2020-06-16 22:10] VITALS: BP 164/66
[2020-06-16 23:21] LABS: BILIRUBIN,URINE NEGATIVE (NEGATIVE); CLARITY,URINE CLEAR (CLEAR); COLOR,URINE YELLOW (YELLOW); KETONES,URINE NEGATIVE (NEGATIVE); LEUKOCYTE ESTERASE ,URINE NEGATIVE (NEGATIVE); NITRITE,URINE NEGATIVE (NEGATIVE); PROTEIN,URINE DIPSTICK NEGATIVE (NEGATIVE); URINE UROBILINOGEN 0.2 mg/dL (0.2 - 1)
[2020-06-16 23:38] LABS: AMORPHOUS SEDIMENT,URINE MODERATE (FEW); BACTERIA,URINE MODERATE /HPF; EPITHELIAL CELLS,URINE FEW /LPF; RBC,URINE 0-5 /HPF (0-5); WBC,URINE (MAN) 0-5 /HPF (0-5)
[2020-06-17] VITALS: BP 141/51
[2020-06-17 04:00] VITALS: BP 150/56
[2020-06-17 05:28] LABS: CREATINE KINASE MB 0.8 ng/mL (0-5.0)
[2020-06-17 06:03] LABS: CHOL/HDL RATIO 4.1 (3.0-3.6)
[2020-06-17] MEDS: SODIUM CHLORIDE FLUSH 10 ML SYR INJ PRN ×2 (08:20→13:55)
[2020-06-17] MEDS: HYDRALAZINE HCL 20 MG/ML VIAL IV PRN ×5 (08:20→23:54)
[2020-06-17 09:00] VITALS: BP 162/75
[2020-06-17] MEDS ORDERED: ASPIRIN 81 MG ENTERIC COATED PO SCH (09:00)
[2020-06-17] MEDS ORDERED: ALBUTEROL SULFATE HFA 8GM INHALATION AEROSOL INH PRN (09:45)
[2020-06-17] MEDS: CEFTRIAXONE SOD 1 GM/NS 50 ML 50 ML IV SCH (13:19)
[2020-06-17 15:04] VITALS: BP 154/67
--- NOTE | 2020-06-17 16:42 | History and Physical ---
PRIMARY CARE PHYSICIAN: Dr. Alex Wood, [facility] COLLECTIONS ATTORNEY: , CHIEF COMPLAINT: Dizziness, unstable gait, blood vision with chest tightness radiating to the left shoulder, neck, and jaw area. HISTORY OF PRESENT ILLNESS: This is a 74-year-old female with past medical history of hypertension, high cholesterol, CAD, hypothyroidism, and glaucoma, presented to the ER with complaints of feeling dizziness, unstable gait, blurred vision, chest tightness radiating to the left shoulder, neck and jaw area. She reports the symptoms have been going on for 4 days, she reports feels like she is drunk. She reports symptoms started after she had her blood pressure medication adjusted. She was on hydralazine 25 mg was increased to 100 mg three times a day, nifedipine 30 mg was added and valsartan 320 mg a day. She reports blood pressure is elevated, but was trying to bring her heart rate up. She reports she has had sinus bradycardia in the past with no symptoms, but the past four days has been symptomatic. She denies any fever, chills, nausea, vomiting, passing out, palpitations, or focal weakness. PAST MEDICAL HISTORY: 1. Hypertension. 2. High cholesterol. 3. CAD status post stent. 4. Hypothyroidism. 5. Glaucoma. 6. Sinus bradycardia. 7. Seasonal allergies. PAST SURGICAL HISTORY: 1. Cardiac stent. 2. Tonsillectomy. 3. Appendectomy. 4. Partial hysterectomy. 5. Meniscus repair of the left knee. 6. Partial thyroidectomy. FAMILY MEDICAL HISTORY: She reports father had diabetes and cancer. Mother had heart disease and heart failure. SOCIAL HISTORY: She denies any tobacco, alcohol, or illicit drug use. ALLERGIES: SHE IS ALLERGIC TO: 1. STATIN. 2. SULFA DRUGS. 3. ATENOLOL. 4. BENZONATATE. 5. CODEINE. 6. ERYTHROMYCIN. 7. IODINE. 8. MACROBID. REVIEW OF SYSTEMS: Ten system reviewed and unremarkable except as reported in HPI. PHYSICAL EXAMINATION: VITAL SIGNS: Temperature 98.1, pulse is 41, respirations 20, blood pressure 150/56, pulse ox is 98% on room air. GENERAL: Dizziness and gait imbalance. HEENT: Normocephalic and atraumatic. NECK: Supple. LUNGS: Clear to auscultation. CARDIOVASCULAR: Regular rate, sinus alison in the 40s. GI: Soft and nontender. NEUROLOGIC: Alert, awake, and oriented x3. Dizziness and gait imbalance. MUSCULOSKELETAL: Moves all extremities. No focal weakness. SKIN: Dry and intact. PSYCH: Calm. LABORATORY DATA: WBC 5.73, hemoglobin 12.5, hematocrit 37.0, platelets 201. Sodium 132, potassium 4.3, CO2 20, BUN 16, creatinine 1.02, estimated GFR is 53. Troponin 0.021 and 0.011, triglyceride 121, cholesterol 224, LDL 146, HDL 54. UA clear yellow, negative for leukocyte esterase, moderate bacteria. Coronavirus PCR is pending. IMAGING: Chest x-ray, no acute thoracic radiographic abnormalities. CT brain, no acute intracranial abnormalities, mild supratentorial, chronic microvascular ischemic change, mild generalized cerebral volume loss. IMPRESSION/PLAN: 1. Chest pain, rule out acute coronary syndrome. Chest pain radiating to the left arm, shoulder, jaw and neck area. Troponin x3 negative. We will continue to monitor trend. Echocardiogram has been ordered. We will consult Cardiology for further evaluation. 2. Symptomatic bradycardia, heart rate in the 40s on continuous tele-monitor, associated with dizziness and unstable gait and blurred vision. CT brain is unremarkable. Reports had recent blood pressure medication adjustment, which could be causing the dizziness. Further recommendations per Cardiology. 3. Hypertension, we will treat with hydralazine IV p.r.n. 4. Coronary artery disease, status post stent in the past, we will resume Plavix. 5. Hypothyroidism, we will check TSH and resume Synthroid 75 mcg. 6. History of high cholesterol, she is allergic to statin and states she takes fiber per PCP. 7. Recent history of UTI, we will give two more days of Rocephin to complete her treatment. 8. DVT prophylaxis, SCDs due to high risk for falls. Dictated by DAMIR Greenberg Kelsy Bobo MD MY/MODL /[id number]
--- NOTE | 2020-06-17 18:23 | Consultation ---
DATE OF CONSULTATION: 06/17/2020 Cardiology consultation REASON FOR CONSULTATION: Dizziness, lightheadedness and near syncope. HISTORY OF PRESENT ILLNESS: Ms. Lugo is a 74-year-old lady with past medical history of hypertension, hypercholesteremia, CAD with prior history of stented coronary artery and LAD back in January of 2019 at [facility], who also has reactive airway disease/asthma. The patient has multiple drug allergies. Sounds like she has also been suffering with sick sinus syndrome with persistently low heart rates that ranges between 30s to 50s normally. In fact, they had to her primary school superintendent team at [facility], had to limit their antihypertensive therapy to avoid utilizing any AV cleopatra slowing agents and despite this she continues to be persistently bradycardic. She comes in today with heart rates in the 30s to 50s range and blood pressure has been relatively well controlled in the 120s to 150s range systolic. She also has been endorsing intermittent left shoulder pain that sometimes radiates to the neck and jaw region. She notes that this tends to happen when her blood pressure is elevated. I had a long discussion with the possibility that this could also be a form of angina pectoris for which she replied oh god no, I will not undergo another heart catheterization at this time and is not interested in ischemic evaluation. We have an echocardiogram done showing hypertensive heart changes and a preserved EF that was done on this admission. Her main issue is just feeling overall lightheaded and dizzy, and she feels it could be related to her slow heart rate. PAST MEDICAL HISTORY: 1. Hypertension, essential. 2. Hypercholesteremia. 3. CAD with prior history of stent to coronary in January of 2019. 4. Sick sinus syndrome. 5. Reactive airway disease. 6. Asthma. 7. History of diverticulosis. PAST SURGICAL HISTORY: 1. Known history of appendectomy. 2. History of partial hysterectomy. 3. History of cataract surgery. 4. History of tonsillectomy. 5. History of left knee surgery. FAMILY HISTORY: Mother at age of 90 with congestive heart failure. Father is unknown and no known medical history. Sister, who is doing well. SOCIAL HISTORY: She denies smoking. Denies any alcohol or illicit drug use. ALLERGIES: CODEINE, IODINE, STATINS, SULFA AND BETA BLOCKERS. HOME MEDICATIONS: Most recently include aspirin 81 mg daily, Plavix 75 mg daily, albuterol MDI p.r.n., Symbicort 160 inhaled daily, hydralazine 100 mg t.i.d., Synthroid 75 mcg daily, nifedipine 30 mg daily, Restoril 7.5 mg at bedtime, valsartan 320 mg daily, trazodone 50 mg at bedtime, and tramadol 50 mg q.6 hours p.r.n. REVIEW OF SYSTEMS: GENERAL: Denies any fevers, chills, or weight changes. HEENT: Occasional headaches. No diplopia. No sore throat or stuffy nose. RESPIRATORY: Denies any pleuritic chest pain. Occasional cough and wheezing. CARDIOVASCULAR: As per HPI. GI: Denies any abdominal pain, bright red blood per rectum, melena, hematemesis, nausea, or vomiting. : Denies dysuria, pyuria, or hematuria. MUSCULOSKELETAL: Positive for arthritis. ENDOCRINE: Denies any heat or cold intolerance. NEUROLOGIC: Positive for dizziness as per HPI. Denies any focal weakness, numbness, tingling, seizures, headache, TIA or stroke. Remainder review of systems negative, otherwise mentioned. PHYSICAL EXAMINATION: VITAL SIGNS: Height of 64 inches, weight of 162 pounds, BMI is 27.8, temperature of 98.1, pulse of 41, respiratory rate 20, blood pressure 150/56, and O2 saturation 98% on room air. GENERAL: This is a well nourished, well developed lady, who is currently in no apparent distress. HEENT: Normocephalic and atraumatic. Pupils are equal, round, and reactive. Extraocular movements are intact. Oropharynx is clear. NECK: No elevation in jugular venous pulsation. No carotid bruits. CARDIOVASCULAR: Regular rate and rhythm. Normal S1, S2. Bradycardic rate. Normal rhythm. Normal S1, S2. 2/6 systolic ejection murmur at right upper sternal border. LUNGS: Clear to auscultation bilaterally. ABDOMEN: Soft, nontender, nondistended. Normoactive bowel sounds. No hepatosplenomegaly. BACK: No costovertebral angle tenderness. EXTREMITIES: Warm with 1 to 2+ bilateral femoral pulses, 1+ pedal pulses, 1+ radial pulses. There is no edema. NEUROLOGIC: Cranial nerves II through XII are grossly intact. Strength is seemingly preserved and she appears nonfocal. PSYCH: No anxiety or delusions. LABORATORY DATA: White count of 5.7, hemoglobin 12.5, hematocrit 37.0, and platelets of 201. Sodium 132, potassium 4.3, chloride 101, bicarb of 20, BUN 16, creatinine 1.02, glucose of 93, and calcium of 8.9. AST 10, ALT 8, alkaline phosphatase 34, total protein of 6.3, and albumin of 3.8. Troponin went from 0.021 to 0.011 to 0.011, has ruled out for DE. HDL 54, LDL of 146. TSH is 1.538. UA is unremarkable. COVID PCR is pending. IMAGING DATA: Brain CT shows mild chronic microvascular ischemic changes and mild generalized volume loss. Chest x-ray shows no acute abnormalities. EKG reveals sinus bradycardia, LVH, and no ST-T wave changes. DIAGNOSES: 1. Near syncopal episodes with suggestion of sick sinus syndrome. 2. Coronary artery disease with stable angina. 3. Stent to coronary artery. 4. Hypertension. 5. Hypercholesteremia with statin intolerance. PLAN/RECOMMENDATIONS: 1. From a cardiovascular standpoint, the patient definitely has element of sick sinus syndrome, not on any AV cleopatra blocking agents, and her heart rates are ranging 30s to 40s on telemetry and asymptomatic. 2. We will consult EP for their recommendations. 3. TSH is within normal limits. 4. Continue antihypertensive therapy. 5. Statin therapy. 6. I offered a nuclear stress test and a heart catheterization for definitive ischemic evaluation. She has adamantly refused workup of this issue. 7. We will continue to follow this patient. Thank you for this referral. MD GARRETT Whitfield/CINDY /[id number]
[2020-06-17] MEDS: BUDESONIDE/FORMOTEROL 160/4.5MCG INHALER INH SCH (19:00)
[2020-06-17 19:56] VITALS: BP 139/66
[2020-06-17 19:58] VITALS: BP 139/66
[2020-06-18] VITALS (10 sets, daily range): BP systolic 148–171; BP diastolic 63–92
[2020-06-18] MEDS: LEVOTHYROXINE SODIUM 75 MCG TAB PO SCH (06:38)
[2020-06-18] MEDS: BUDESONIDE/FORMOTEROL 160/4.5MCG INHALER INH SCH ×2 (07:00→19:00)
[2020-06-18] MEDS: ASPIRIN 81 MG CHEW TAB PO SCH (08:21)
[2020-06-18] MEDS: CLOPIDOGREL BISULFATE 75 MG TAB PO SCH (08:21)
--- NOTE | 2020-06-18 08:41 | NUR ---
pt vs stable, with bradycardia. rounded and aware. pending EP consult
--- NOTE | 2020-06-18 12:21 | Progress Note ---
DATE: 06/18/2020 CONSULTANTS: 1. Dr. Maravilla, Cardiology. 2. Dr. Ni, EP. SUBJECTIVE: The patient reports dizziness and visual disturbances improved, using walker to help with her gait. She denies any further chest pain, shortness of breath, chills, fever, nausea, or vomiting. Heart rate remains in the 40s. OBJECTIVE: VITAL SIGNS: Temperature 98.0, pulse is 39, respirations 16, blood pressure 148/89, pulse ox is 98% on room air. GENERAL: No acute distress, dizziness, improving. HEENT: Normocephalic, atraumatic. NECK: Supple. LUNGS: Clear to auscultation. CARDIOVASCULAR: Regular and bradycardic. GI: Soft and nontender. NEUROLOGIC: Alert, awake, oriented x3. Dizziness and gait imbalance improving some. MUSCULOSKELETAL: Moves all extremities. No focal weakness. SKIN: Dry and intact. PSYCH: Calm. No labs or imaging today. IMPRESSION: 1. Chest pain, ruled out acute coronary syndrome. Troponins negative, echocardiogram done. Cardiology has been consulted and per report has refused ischemic workup. 2. Sick sinus syndrome. Heart rate low in 30s to 40s. Continue current medication, CT brain negative. EP has been consulted and plan pacemaker placement tomorrow. 3. Hypertension. We will treat with hydralazine as needed. 4. History of coronary artery disease post stent. We will resume Plavix. 5. Hypothyroidism. TSH within normal limits, resume Synthroid 75 mcg daily. 6. High cholesterol. She is statin intolerant. 7. Recent history of urinary tract infection. We will complete treatment with Rocephin today. 8. Deep vein thrombosis prophylaxis. SCDs due to planned procedure tomorrow. PLAN: To continue tele monitor, BP control and pacemaker placement per EP tomorrow. Dictated by DAMIR Greenberg Kelsy Bobo MD MY/MODL /[id number]
[2020-06-18] MEDS: CEFTRIAXONE SOD 1 GM/NS 50 ML 50 ML IV SCH (12:49)
--- NOTE | 2020-06-18 14:27 | Consultation ---
DATE OF CONSULTATION: 06/18/2020 REASON FOR CONSULT: Symptomatic bradycardia. HISTORY OF PRESENT ILLNESS: This is a 74-year-old woman with history of chronic bradycardia. The patient has had episodes of dizziness and near syncope. This is the second admission for bradycardia. The heart rate is in the 40s and drops in the 30s with associated symptoms. The patient denies syncope. She is not on any AV node blocking agents. We were consulted to consider a pacemaker. REVIEW OF SYSTEMS: CONSTITUTIONAL: Negative. CARDIOVASCULAR: As per HPI. RESPIRATORY: Negative. GASTROINTESTINAL: Negative. GENITOURINARY: Negative. MUSCULOSKELETAL: Negative. EYES: Negative. ENT: Negative. ALLERGY/IMMUNOLOGY: Negative. PSYCHIATRIC: Negative. PAST MEDICAL HISTORY: Hypertension. PAST SURGICAL HISTORY: Denies. SOCIAL HISTORY: Denies alcohol or smoking. FAMILY HISTORY: No premature coronary artery disease. PHYSICAL EXAMINATION: VITAL SIGNS: Blood pressure 158/60, pulse 40, respirations 20, and O2 saturation 98%. GENERAL: No acute distress. HEENT: Moist mucous membranes. CARDIOVASCULAR: Regular. RESPIRATORY: Clear. ABDOMEN: Soft and nontender. MUSCULOSKELETAL: 2+ distal pulses. NEUROLOGICAL: No focal deficits. SKIN: No lesions. PSYCHIATRIC: Normal thought process. EKG, sinus bradycardia. IMPRESSION: Symptomatic bradycardia with dizziness, near syncope. No reversible causes. RECOMMENDATIONS: Discussed with the patient in detail. She has heart rate in the 40s at baseline, drops to the 30s, sometimes with associated symptoms. No reversible causes. This was discussed with the patient in detail, indications for pacing, procedure benefits and risks. She voiced understanding and wishes to proceed. Plan for a dual-chamber pacemaker placement. She is agreeable with the plan. Thank you for letting us participate in Ms. [facility]. MD TESS Soria/MODL /[id number]
[2020-06-18] MEDS: HYDRALAZINE HCL 20 MG/ML VIAL IV PRN ×2 (17:01→22:26)
[2020-06-18] MEDS: TRAZODONE HCL 50 MG TAB PO PRN (23:45)
[2020-06-18] MEDS: TEMAZEPAM 7.5 MG CAP PO PRN (23:46)
[2020-06-19 05:00] LABS: BASOPHILS % 0.8 % (0.0-1.0); EOSINOPHILS # (AUTO) 0.1 (0.0-0.4); EOSINOPHILS % 1.3 % (0.0-6.0); HEMATOCRIT 37.1 % (34.2-44.1); HEMOGLOBIN 12.8 g/dL (12.0-16.0); LYMPHOCYTES # (AUTO) 1.7 (1.0-3.2); LYMPHOCYTES % 33.2 % (18.0-39.1); MEAN CORPUSCULAR HEMOGLOBIN 31.5 pg (28-32); MEAN CORPUSCULAR HGB CONC 34.5 g/dL (31-35); MEAN CORPUSCULAR VOLUME 91.4 fL (81-99); MONOCYTES # (AUTO) 0.4 (0.2-0.8); MONOCYTES % 7.4 % (4.4-11.3); NEUTROPHILS % 57.1 % (38.7-80.0); PLATELET COUNT 154 x10e3/uL (140-360); RED BLOOD COUNT 4.06 x10e6/uL (3.6-5.1); RED CELL DISTRIBUTION WIDTH 12.4 % (11.7-14.4)
[2020-06-19 05:19] LABS: BLOOD UREA NITROGEN 16 mg/dL (7-26); BUN/CREATININE RATIO 20 (6-25); CALCIUM 8.4 mg/dL (8.4-10.2); CARBON DIOXIDE 21 mmol/L (22-29); CHLORIDE 101 mmol/L (98-107); CREATININE, SERUM 0.81 mg/dL (0.57-1.11); EST GLOMERULAR FILTRATION RATE > 60 ML/MIN (60-); GLUCOSE 95 mg/dL (74-118); SODIUM 132 mmol/L (136-145)
[2020-06-19] MEDS: BUDESONIDE/FORMOTEROL 160/4.5MCG INHALER INH SCH ×2 (07:00→19:00)
[2020-06-19] MEDS: LEVOTHYROXINE SODIUM 75 MCG TAB PO SCH (07:03)
[2020-06-19 07:43] VITALS: BP 119/59
[2020-06-19 07:44] VITALS: BP 119/59
[2020-06-19] MEDS: ASPIRIN 81 MG CHEW TAB PO SCH (07:45)
[2020-06-19] MEDS: CLOPIDOGREL BISULFATE 75 MG TAB PO SCH (07:45)
[2020-06-19 08:19] LABS: INR 0.91; PARTIAL THROMBOPLASTIN TIME 28.8 seconds (23.8-35.5); PROTHROMBIN TIME 12.7 seconds (11.9-14.5)
[2020-06-19 11:40] VITALS: BP 181/86
--- NOTE | 2020-06-19 13:28 | Progress Note ---
DATE: 06/19/2020 CONSULTANTS: 1. Dr. Maravilla, Cardiology. 2. Dr. Ni, Electrophysiology. SUBJECTIVE: The patient is sitting up in bed with no acute distress. She reports overall is feeling better. No chest pain, dizziness, nausea, or vomiting. She is scheduled for pacemaker placement this afternoon. OBJECTIVE: VITAL SIGNS: Temperature 98.0, pulse is , respirations 18, blood pressure 119/59, pulse ox is 96% on room air. GENERAL: No acute distress. HEENT: Normocephalic, atraumatic. NECK: Supple. LUNGS: Clear to auscultation. CARDIOVASCULAR: Regular rate but bradycardic. GI: Soft and nontender. NEUROLOGIC: Alert, awake and oriented x3. MUSCULOSKELETAL: Moves all extremities. No focal weakness. SKIN: Dry. LABORATORY DATA: WBC 5.24, hemoglobin 12.8, hematocrit 37.1, platelet 154. Sodium 132, potassium 4.0, BUN is 16, creatinine 0.81, estimated GFR is greater than 60. IMPRESSION: 1. Chest pain, rule out acute coronary syndrome. Troponins negative. Echocardiogram done. Cardiology has been consulted and has refused ischemic workup. 2. Sick sinus syndrome. Heart rate symptomatic bradycardia. EP has been consulted for pacemaker this afternoon. 3. Hypertension. We will treat with hydralazine as needed. 4. History of coronary artery disease post stent. We will hold Plavix today for pacemaker placement. 5. Hypothyroidism. Continue Synthroid. 6. High cholesterol. She has been statin intolerant. Takes fiber per PCP. 7. Recent history of urinary tract infection. Completed Rocephin. 8. Deep vein thrombosis prophylaxis. SCDs due to pacemaker placement later today. PLAN: To continue tele monitor, BP control and pacemaker later today. Dictated by DAMIR Greenberg Kelsy Bobo MD MY/MODL /[id number]
[2020-06-19] MEDS ORDERED: METHYLPREDNISOLONE SOD SUCC 125 MG/2ML VIAL ONE (16:12)
[2020-06-19] MEDS ORDERED: DIPHENHYDRAMINE HCL INJ 50 MG/ML VIAL ONE (16:12)
[2020-06-19] MEDS ORDERED: MIDAZOLAM HCL 2 MG/2 ML VIAL ONE ×4 (16:12→17:22)
[2020-06-19] MEDS ORDERED: BACITRACIN 50,000 UNIT VIAL ONE (16:13)
[2020-06-19] MEDS ORDERED: FENTANYL CITRATE/PF 100MCG/2 ML INJ ONE ×2 (16:13→17:23)
[2020-06-19] MEDS ORDERED: LIDOCAINE 1% W/EPINEPHRINE 20 ML VIAL ONE (16:13)
[2020-06-19] MEDS ORDERED: SODIUM CHLORIDE 0.9% 1000ML 2,000 ML ONE (16:14)
[2020-06-19] MEDS ORDERED: VANCOMYCIN 1GM/NS 250 ML 500 ML ONE (16:14)
[2020-06-19] MEDS ORDERED: SODIUM CHLORIDE 0.9% 500ML 500 ML ONE (16:21)
[2020-06-19] MEDS ORDERED: GENTAMICIN SULFATE 40 MG/ML 2 ML VIAL ONE (16:33)
[2020-06-19 20:00] VITALS: BP 163/80
[2020-06-19] MEDS ORDERED: TRAMADOL HCL 50 MG TAB PO STA (20:13)
[2020-06-19] MEDS: TRAMADOL HCL 50 MG TAB PO PRN ×2 (20:40→21:18)
[2020-06-19 21:00] VITALS: BP 163/80
[2020-06-19] MEDS: HYDRALAZINE HCL 20 MG/ML VIAL IV PRN (22:22)
[2020-06-19] MEDS: TRAZODONE HCL 50 MG TAB PO PRN (22:41)
[2020-06-19] MEDS: TEMAZEPAM 7.5 MG CAP PO PRN (22:41)
--- NOTE | 2020-06-19 23:34 | Operative Report ---
DATE OF PROCEDURE: 06/19/2020 SURGEON: Clem Mejia MD PREPROCEDURE DIAGNOSES: 1. Symptomatic bradycardia, no reversible causes. 2. Dizziness. POSTPROCEDURE DIAGNOSES: 1. Symptomatic bradycardia, no reversible causes. 2. Dizziness. ESTIMATED BLOOD LOSS: 10 mL. COMPLICATIONS: None. PROCEDURES PERFORMED: 1. Dual-chamber pacemaker placement. 2. Moderate sedation. Moderate conscious sedation was provided under my direct supervision by a sedation trained nurse. Sedation approximate time 30 minutes, Versed and fentanyl. There were no complications. See sedation report for details. PROCEDURE IN DETAIL: After informed consent was obtained, the patient was brought to the electrophysiology laboratory in a fasting, nonsedated state. Area over her chest was prepped and draped in usual sterile fashion. Moderate sedation and prophylactic antibiotics were given. 1% lidocaine was used as local anesthetic and a 3 cm skin incision was made in the right subclavicular area. Electrocautery sharp and blunt dissection were used to bridge the muscular fascia and a pocket was created for event implantation of the device. Vascular access was obtained x2 in the right axillary vein using modified Seldinger technique under fluoroscopic guidance. Two sheaths were placed ventricular lead to the RV apex R-wave 11, pacing threshold 0.5 at 2.4. Atrial lead to the right atrial appendage, P-wave 3, pacing 0.75. Sheaths were removed from the body. Leads were secured to fascia using Ethibond. Pocket was irrigated with antibiotic solution using the pulse overnight houseperson. Hemostasis was meticulous. Leads were connected to the device and the entire new pacemaker system was placed in the pocket. We used antibiotic envelope in vancomycin powder. Incision was closed using absorbable sutures and Dermabond. The patient tolerated the procedure well. Procedure was incomplete. SUMMARY OF HARDWARE IMPLANTED: 1. The new pacemaker is a [employer], serial #[id number]. 2. RV lead is [employer], serial #[id number]. 3. RA lead is [employer], [id number]. IMPRESSION: Successful dual-chamber pacemaker implant via right axillary vein. PLAN: 1. Routine postop monitoring on telemetry bed. 2. Chest x-ray. 3. Follow up in 2 weeks. MD TESS Soria/ANJUL /[id number]
[2020-06-20] VITALS (7 sets, daily range): BP systolic 119–151; BP diastolic 57–76
[2020-06-20] MEDS: LEVOTHYROXINE SODIUM 75 MCG TAB PO SCH (06:10)
[2020-06-20] MEDS: BUDESONIDE/FORMOTEROL 160/4.5MCG INHALER INH SCH (07:00)
[2020-06-20] MEDS: CLOPIDOGREL BISULFATE 75 MG TAB PO SCH (08:44)
[2020-06-20] MEDS: ASPIRIN 81 MG CHEW TAB PO SCH (08:44)
[2020-06-20] MEDS ORDERED: DIOVAN160 MG PO (12:50)
[2020-06-20] MEDS ORDERED: CLONIDINE HCL 0.1 MG TAB PO ONE (13:00)
--- NOTE | 2020-06-20 13:46 | Diagnostic Imaging Report ---
TECHNIQUE: Frontal view of the chest. INDICATION: ^PACEMAKER PLACEMENT ^[id number] ^[id number] COMPARISON: 06/16/2020 DISCUSSION: Limited evaluation due to portable technique. Lines and hardware: Interval placement of right chest wall dual-lead pacemaker is noted with right atrial and right ventricular leads grossly intact. Stable surgical changes of the base of the neck and thoracic inlet. Heart and mediastinum: Stable. Lungs and pleura: No focal airspace consolidation. No pleural effusion. No pneumothorax. Soft tissues and bones: No acute abnormality. IMPRESSION: Interval placement of right chest wall dual-lead pacemaker. Negative for acute intrathoracic process. Signed by: Jacob Cai MD on 06/20/2020 1:43 PM
--- NOTE | 2020-06-20 14:00 | NUR ---
Discharged home verbalized understanding of d/c instructions.
--- NOTE | 2020-06-20 22:04 | Discharge Summary ---
PRIMARY CARE PHYSICIAN: Dr. Alex Wood, [facility] FINAL DISCHARGE DIAGNOSES: 1. Sick sinus syndrome, status post pacemaker placement. 2. Hypertension. 3. History of coronary artery disease. 4. History of hypothyroidism. 5. High cholesterol. CONSULTANTS: 1. Dr. Maravilla with Cardiology. 2. Dr. Ni, service inspector. PROCEDURES: Pacemaker placement. HISTORY: Per HPI. HOSPITAL COURSE: This is a 74-year-old female with past medical history of hypertension, CAD, hypothyroidism, high cholesterol, and recent UTI, who presented to the ER with complaints of dizziness, vision changes, and gait imbalance. She was noted to have a heart rate of low in the 30s to 40s. Cardiac enzymes were negative, echocardiogram with no functional problems with EF 55% to 60%. She was monitored on tele, discontinued her blood pressure medications such as nifedipine, Diovan, and hydralazine. EP doctor was consulted and she underwent pacemaker placement for sick sinus syndrome. She was monitored overnight. Today, she is feeling much better, reports dizziness and gait imbalance have resolved. We will discharge home to follow up with her business investor, PCP, and EP in 1 to 2 weeks. PHYSICAL EXAMINATION: VITAL SIGNS: Temperature 98.5, pulse of 50, respirations 20, blood pressure 151/76, pulse ox is 99% on room air. GENERAL: No acute distress. HEENT: Normocephalic and atraumatic. NECK: Supple. LUNGS: Clear to auscultation. CARDIOVASCULAR: Regular rate and rhythm. Pacemaker placed to the right upper chest due to her being left handed. GI: Soft and nontender. NEUROLOGIC: Alert, awake, and oriented x3. MUSCULOSKELETAL: Moves all extremities. SKIN: Dry. CONDITION AT DISCHARGE: Stable and improved. DISCHARGE MEDICATIONS: Please see medication reconciliation list. The patient is advised to take Diovan 160 mg daily and minocycline for pacemaker placement. FOLLOWUP: With PCP, her business investor, and Dr. iN in 1 to 2 weeks. TIME SPENT: Total time of discharge is 31 minutes. Dictated by DAMIR Greenberg Tanishaching Taras Bobo MD MY/MODL /[id number] cc: Alex Wood MD [facility]
== END 2020-06-20 14:59 | disposition home or self-care (01) | DRG 244 ==
LOC: ER 18:44 → ERHOLD 20:38 → IMCU 22:00 → OBSVTOIN 06-18 15:02
PROVIDERS: ADMIT Internal Medicine; ATTEND Internal Medicine
PROC: 0JH606Z Insertion of Pacemaker, Dual Chamber into Chest Subcutaneous Tissue and Fascia, Open Approach (ICD-10-PCS; principal; 2020-06-19)
PROC: 02H60JZ Insertion of Pacemaker Lead into Right Atrium, Open Approach (ICD-10-PCS; 2020-06-19)
PROC: 02HK3JZ Insertion of Pacemaker Lead into Right Ventricle, Percutaneous Approach (ICD-10-PCS; 2020-06-19)
DX: I49.5 Sick sinus syndrome (principal); I10 Essential (primary) hypertension; I25.10 Atherosclerotic heart disease of native coronary artery without angina pectoris; E03.9 Hypothyroidism, unspecified; E78.00 Pure hypercholesterolemia, unspecified; R26.9 Unspecified abnormalities of gait and mobility
CPT/HCPCS: 33208; 36415; 70450; 71045; 80048; 80053; 80061; 81001; 82550; 82553; 84443; 84484; 85025; 85610; 85730; 93005; 93306; 93880; 99152; 99153; 99284; C1785; C1898; G0378; J0360; J0696; J1200; J1580; J2250; J2930; J3010; J3370; J7030; J7040; U0002